=== PATIENT | female | born 1965 | race Caucasian/White ===

== ENCOUNTER → 2017-12-01 | Outpatient (CLI) | payer BC | LOC: PLD 08:01 → LAB SHORT 08:01 | DX: D48.5 Neoplasm of uncertain behavior of skin (principal) | CPT/HCPCS: 88305 ==

== ENCOUNTER → 2019-03-10 | Outpatient (CLI) | payer BC | LOC: PLD 15:46 → LAB SHORT 15:46 | DX: L30.8 Other specified dermatitis (principal) | CPT/HCPCS: 88305; 88312; 88313 ==

== ENCOUNTER → 2019-03-14 | Outpatient (CLI) | payer BC ==
[2019-03-16 15:18] LABS: HPV 16 Negative (Negative); HPV 18 Negative (Negative); HPV OTHER HR TYPES Negative (Negative)
== END | disposition home or self-care (01) ==
LOC: LAB 17:42 → LAB SHORT 17:42
PROVIDERS: Nurse Practitioner Women's Health
DX: Z12.4 Encounter for screening for malignant neoplasm of cervix (principal); N89.8 Other specified noninflammatory disorders of vagina; Z91.89 Other specified personal risk factors, not elsewhere classified
CPT/HCPCS: 87070; 87147; 87205; 87624; G0123